=== PATIENT | male | born 1945 | race Caucasian/White ===

== ENCOUNTER 2018-03-14 08:03 | Emergency (ER) | payer OTHER, MEDICARE | END 2018-03-14 09:50 | disposition home or self-care (01) | PROC: 0HQ1XZZ Repair Face Skin, External Approach (ICD-10-PCS; principal; 2018-03-14) | DX: S01.81XA Laceration without foreign body of other part of head, initial encounter (principal); W01.198A Fall on same level from slipping, tripping and stumbling with subsequent striking against other object, initial encounter ==